=== PATIENT | female | born 1940 | race Caucasian/White ===

== ENCOUNTER 2022-05-14 13:32 | Emergency (ER) | payer MEDICAID ==
[~2022-05-14] VITALS: Ht 157.5 cm; Wt 56.7 kg
--- NOTE | 2022-05-14 13:45 | NUR ---
BIBRA 89 FROM HOME W/ C/O WEAKNESS AND DIZZINESS x 2DAYS B, JHOANA EQUAL STRENGTH, NO DRIFT. TO ER BED 9.
[2022-05-14 14:57] LABS: HEMATOCRIT 40 % (33-45); HEMOGLOBIN 13.3 g/dL (11.5-14.8); MEAN CORPUSCULAR HGB CONC 33 g/dl (31.0-36.0); MEAN CORPUSCULAR VOLUME 99 fL (82-100); PLATELET COUNT (AUTO) 305 K/uL (150-450); RED BLOOD CELL COUNT(AUTO) 4.01 MIL/uL (4.0-5.2); WHITE BLOOD COUNT (AUTO) 4.2 K/uL (4.3-11.0)
[2022-05-14 15:21] LABS: BILIRUBIN,DIRECT 0.2 mg/dL (0.0-0.2); BILIRUBIN,TOTAL 0.9 mg/dL (0.2-1.0); CALCIUM, SERUM 9.1 mg/dL (8.5-10.1); POTASSIUM 3.7 mmol/L (3.5-5.1); TOTAL PROTEIN, SERUM 7.6 g/dL (6.4-8.2)
[2022-05-14] MEDS ORDERED: ACETAMINOPHEN 325 MG TABLET ONE (15:59)
[2022-05-14] MEDS ORDERED: ACETAMINOPHEN 325 MG TABLET PO ONE (16:00)
[2022-05-14] MEDS ORDERED: IV NS 0.9% 1,000 ML IV ONE (16:00)
[2022-05-14] MEDS ORDERED: NAPR-1009 PO (16:31)
--- NOTE | 2022-05-14 17:00 | NUR ---
IV removed. Catheter intact and site benign. Pressure and 4x4 applied to site. No bleeding noted.Patient discharged to home with family in stable condition. Written and verbal after care instructions given. Patient verbalizes understanding of instruction.
[2022-05-14 17:15] VITALS: BP 147/71
[2022-05-15 03:56] LABS: BASOPHILS % (MANUAL) 0 % (0.0-2.0); EOSINOPHILS % (MANUAL) 3 % (0-4); LYMPHOCYTES % (MANUAL) 22 % (16-48); MONOCYTES % (MANUAL) 8 % (0-11.0); NEUTROPHILS % (MANUAL) 67 (42-76)
== END 2022-05-14 17:05 | disposition home or self-care (01) ==
LOC: ER 15:09
DX: R51.9 Headache, unspecified (principal); R55 Syncope and collapse; I10 Essential (primary) hypertension
CPT/HCPCS: 99285; 70450; 71045; 93005; 85025; 80048; 80076; 36415; 84484; 85007; J7030

== ENCOUNTER 2023-02-18 15:14 | Emergency (ER) | payer MEDICAID ==
[~2023-02-18] VITALS: Ht 167.6 cm; Wt 65.8 kg
[~2023-02-18 15:14] MED LIST: NAPR-1009 PO
[2023-02-18] MEDS ORDERED: PROCHLORPERAZINE EDISYLATE 10 MG/2 ML VIAL ONE (16:48)
[2023-02-18] MEDS ORDERED: IV NS 0.9% 1,000 ML BAG IV ONE (17:00)
[2023-02-18] MEDS ORDERED: PROCHLORPERAZINE EDISYLATE 10 MG/2 ML VIAL IVP ONE (17:00)
[2023-02-18 17:15] LABS: CALCIUM, SERUM 9.5 mg/dL (8.5-10.1); CARBON DIOXIDE 25 mmol/L (21-32); CHLORIDE 100 mmol/L (98-107); CREATININE 0.8 mg/dL (0.6-1.3); GLUCOSE 87 mg/dL (74-106); POTASSIUM 3.7 mmol/L (3.5-5.1); SODIUM SERUM 137 mmol/L (136-145); UREA NITROGEN, BLOOD 11 mg/dL (7-18)
[2023-02-18 17:24] LABS: BASOPHILS % (AUTO) 0.4 % (0.0-2.0); EOSINOPHILS # (AUTO) 0.2 K/uL (0.0-0.7); EOSINOPHILS % (AUTO) 3.4 % (0.0-6.0); HEMATOCRIT 39 % (33-45); LYMPHOCYTES # (AUTO) 0.8 K/uL (0.8-4.8); LYMPHOCYTES % (AUTO) 14.9 % (20.0-44.0); MEAN CORPUSCULAR HEMOGLOBIN 33 PG (26.0-33.0); MEAN CORPUSCULAR HGB CONC 34 g/dl (31.0-36.0); MEAN CORPUSCULAR VOLUME 99 fL (82-100); MONOCYTES # (AUTO) 0.4 K/uL (0.1-1.30); MONOCYTES % (AUTO) 7.8 % (2.0-12.0); NEUTROPHILS # (AUTO) 3.9 K/uL (1.8-8.9); NEUTROPHILS % (AUTO) 73.5 % (43.0-81.0); PLATELET COUNT (AUTO) 288 K/uL (150-450); RED BLOOD CELL COUNT(AUTO) 3.93 MIL/uL (4.0-5.2); RED CELL DISTRIBUTION WIDTH 13.2 % (11.5-15.0); WHITE BLOOD COUNT (AUTO) 5.3 K/uL (4.3-11.0)
[2023-02-18] MEDS ORDERED: ACETAMINOPHEN ES 500 MG TABLET ONE (17:55)
[2023-02-18] MEDS ORDERED: ACETAMINOPHEN ES 500 MG TABLET PO ONE (18:00)
[2023-02-18] MEDS ORDERED: ACET325T53 PO (18:58)
[2023-02-18 19:13] VITALS: BP 153/65; TEMP 98.4; O2SAT 98
== END 2023-02-18 19:13 | disposition home or self-care (01) ==
LOC: ER 15:18
DX: R51.9 Headache, unspecified (principal); I10 Essential (primary) hypertension
CPT/HCPCS: 99285; 96374; 70450; 96361; 85025; 80048; 36415; J0780; J7030

== ENCOUNTER 2023-04-26 13:10 | Emergency (ER) | payer MEDICAID ==
[~2023-04-26] VITALS: Ht 162.6 cm; Wt 84.4 kg
[~2023-04-26 13:10] MED LIST changes: +ACET325T53 PO
[2023-04-26 13:55] LABS: BASOPHILS % (AUTO) 0.4 % (0.0-2.0); EOSINOPHILS # (AUTO) 0.1 K/uL (0.0-0.7); EOSINOPHILS % (AUTO) 1.9 % (0.0-6.0); HEMATOCRIT 40 % (33-45); HEMOGLOBIN 13.7 g/dL (11.5-14.8); LYMPHOCYTES # (AUTO) 0.9 K/uL (0.8-4.8); LYMPHOCYTES % (AUTO) 11.5 % (20.0-44.0); MEAN CORPUSCULAR HEMOGLOBIN 33 PG (26.0-33.0); MEAN CORPUSCULAR HGB CONC 34 g/dl (31.0-36.0); MEAN CORPUSCULAR VOLUME 96 fL (82-100); MONOCYTES # (AUTO) 0.6 K/uL (0.1-1.30); MONOCYTES % (AUTO) 7.3 % (2.0-12.0); NEUTROPHILS % (AUTO) 78.9 % (43.0-81.0); PLATELET COUNT (AUTO) 322 K/uL (150-450); RED BLOOD CELL COUNT(AUTO) 4.16 MIL/uL (4.0-5.2); RED CELL DISTRIBUTION WIDTH 12.7 % (11.5-15.0); WHITE BLOOD COUNT (AUTO) 7.6 K/uL (4.3-11.0)
[2023-04-26 14:09] LABS: ALANINE AMINOTRANSFERASE 50 U/L (12-78); ALKALINE PHOSPHATASE 92 U/L (46-116); ASPARTATE AMINOTRANSFERASE 40 U/L (15-37); BILIRUBIN,DIRECT 0.2 mg/dL (0.0-0.2); BILIRUBIN,TOTAL 0.6 mg/dL (0.2-1.0); CALCIUM, SERUM 9.8 mg/dL (8.5-10.1); CARBON DIOXIDE 26 mmol/L (21-32); CHLORIDE 98 mmol/L (98-107); CREATININE 0.8 mg/dL (0.6-1.3); GLUCOSE 105 mg/dL (74-106); LIPASE 68 U/L (16-77); POTASSIUM 3.1 mmol/L (3.5-5.1); SODIUM SERUM 132 mmol/L (136-145); TOTAL PROTEIN, SERUM 7.8 g/dL (6.4-8.2); UREA NITROGEN, BLOOD 13 mg/dL (7-18)
[2023-04-26 14:40] LABS: APPEARANCE,URINE SLIGHTLY CLOUDY (CLEAR); BILIRUBIN,URINE 1+ (NEGATIVE); BLOOD, URINE 2+ Ery/uL (NEGATIVE); COLOR,URINE YELLOW (YELLOW); KETONES,URINE 2+ mg/dL (NEGATIVE); LEUKOCYTE ESTERASE ,URINE 2+ (NEGATIVE); NITRITE, URINE NEGATIVE (NEGATIVE); PH,URINE 6.5 (5.0-8.0); PROTEIN,URINE 1+ mg/dl (NEGATIVE); UGLUCOSE NEGATIVE (NEGATIVE)
[2023-04-26 14:59] LABS: ADD URINE CULTURE YES; BACTERIA,URINE 1+ /HPF (None Seen); SQUAMOUS EPITHELIAL CELL,UR Few /HPF (None Seen); UROBILINOGEN,URINE 0 EU/dL (0.2); WBC,URINE 81-100 /HPF (0-3)
[2023-04-26 15:00] LABS: CALCIUM OXALATE CRYSTALS,UR Moderate /HPF (None Seen)
[2023-04-26] MEDS ORDERED: CEFTRIAXONE 1GM BAG (ER ONLY) 50 ML IV ONE ×2 (15:07→15:30)
[2023-04-26] MEDS ORDERED: MORPHINE SULFATE INJ 2 MG/ML DISP.SYRIN IV ONE (15:30)
[2023-04-26] MEDS ORDERED: IV NS 0.9% 1,000 ML IV ONE (15:30)
[2023-04-26] MEDS ORDERED: IBUP-1953 PO (16:06)
[2023-04-26] MEDS ORDERED: NITR100C PO (16:06)
[2023-04-26] MEDS ORDERED: MORPHINE SULFATE INJ 2 MG/ML DISP.SYRIN ONE (16:34)
[2023-04-26 16:38] VITALS: BP 142/68; TEMP 98; O2SAT 97
== END 2023-04-26 16:38 | disposition home or self-care (01) ==
LOC: ER 13:10
DX: N39.0 Urinary tract infection, site not specified (principal); R51.9 Headache, unspecified; I10 Essential (primary) hypertension; F32.A Depression, unspecified; Z79.899 Other long term (current) drug therapy
CPT/HCPCS: 99285; 70450; 96365; 74176; 85025; 80048; 87040 ×2; 87086; 83605; 83690; 80076; 81001; 36415; J7030; A4223; J0696; J2270

== ENCOUNTER 2023-12-19 11:53 | Emergency (ER) | payer MEDICAID ==
[~2023-12-19] VITALS: Ht 167.6 cm; Wt 70.3 kg
[~2023-12-19 11:53] MED LIST changes: +IBUP-1953 PO; +NITR100C PO
[2023-12-19 12:33] LABS: BASOPHILS % (AUTO) 0.3 % (0.0-2.0); EOSINOPHILS # (AUTO) 0.1 K/uL (0.0-0.7); EOSINOPHILS % (AUTO) 1.7 % (0.0-6.0); HEMATOCRIT 33 % (33-45); HEMOGLOBIN 11.4 g/dL (11.5-14.8); LYMPHOCYTES # (AUTO) 0.6 K/uL (0.8-4.8); LYMPHOCYTES % (AUTO) 12.1 % (20.0-44.0); MEAN CORPUSCULAR HEMOGLOBIN 33 PG (26.0-33.0); MEAN CORPUSCULAR HGB CONC 35 g/dl (31.0-36.0); MEAN CORPUSCULAR VOLUME 94 fL (82-100); MONOCYTES # (AUTO) 0.5 K/uL (0.1-1.30); MONOCYTES % (AUTO) 8.6 % (2.0-12.0); NEUTROPHILS # (AUTO) 4.1 K/uL (1.8-8.9); NEUTROPHILS % (AUTO) 77.3 % (43.0-81.0); PLATELET COUNT (AUTO) 318 K/uL (150-450); RED CELL DISTRIBUTION WIDTH 12.9 % (11.5-15.0); WHITE BLOOD COUNT (AUTO) 5.4 K/uL (4.3-11.0)
[2023-12-19 12:45] LABS: APPEARANCE,URINE CLEAR (CLEAR); BILIRUBIN,URINE NEGATIVE (NEGATIVE); BLOOD, URINE NEGATIVE Ery/uL (NEGATIVE); COLOR,URINE YELLOW (YELLOW); KETONES,URINE NEGATIVE (NEGATIVE); LEUKOCYTE ESTERASE ,URINE NEGATIVE (NEGATIVE); NITRITE, URINE NEGATIVE (NEGATIVE); PH,URINE 6.5 (5.0-8.0); PROTEIN,URINE NEGATIVE (NEGATIVE); UGLUCOSE NEGATIVE (NEGATIVE); UROBILINOGEN,URINE 0.2 EU/dL (0.2)
[2023-12-19 12:45] LABS: CALCIUM, SERUM 9.5 mg/dL (8.5-10.1); CARBON DIOXIDE 30 mmol/L (21-32); CHLORIDE 93 mmol/L (98-107); CREATININE 0.9 mg/dL (0.6-1.3); GLUCOSE 100 mg/dL (74-106); POTASSIUM 3.4 mmol/L (3.5-5.1); SODIUM SERUM 130 mmol/L (136-145); UREA NITROGEN, BLOOD 10 mg/dL (7-18)
[2023-12-19 12:51] LABS: ALANINE AMINOTRANSFERASE 27 U/L (12-78); ALBUMIN 3.6 g/dL (3.4-5.0); ALKALINE PHOSPHATASE 49 U/L (46-116); ASPARTATE AMINOTRANSFERASE 27 U/L (15-37); BILIRUBIN,DIRECT 0.3 mg/dL (0.0-0.2); BILIRUBIN,TOTAL 0.9 mg/dL (0.2-1.0); TOTAL PROTEIN, SERUM 7.3 g/dL (6.4-8.2)
[2023-12-19] MEDS ORDERED: ACETAMINOPHEN 325 MG TABLET ONE (20:31)
[2023-12-19] MEDS: ACETAMINOPHEN 325 MG TABLET PO ONE (20:35)
[2023-12-19 21:21] VITALS: BP 121/53; TEMP 98.7; O2SAT 96
== END 2023-12-19 20:55 | disposition home or self-care (01) ==
LOC: ER 11:55
DX: S09.8XXA Other specified injuries of head, initial encounter (principal); S00.511A Abrasion of lip, initial encounter; R53.1 Weakness; R62.7 Adult failure to thrive; I10 Essential (primary) hypertension; F32.A Depression, unspecified; F03.90 Unspecified dementia, unspecified severity, without behavioral disturbance, psychotic disturbance, mood disturbance, and anxiety; R29.6 Repeated falls; Z20.822 Contact with and (suspected) exposure to COVID-19; W18.39XA Other fall on same level, initial encounter; Y93.89 Activity, other specified; Y92.098 Other place in other non-institutional residence as the place of occurrence of the external cause; Y99.8 Other external cause status
CPT/HCPCS: 36415; 70450-TC; 70486-TC; 71045-TC; 72125-TC; 80048-TC; 80076-TC; 82962-TC; 84443-TC; 84484-TC; 85025-TC; 86850-TC

== ENCOUNTER 2024-03-06 14:59 | Emergency (ER) | payer MEDICAID, OTHER ==
[~2024-03-06] VITALS: Ht 172.7 cm; Wt 62.6 kg
[2024-03-06] MEDS: IV NS 0.9% 1,000 ML BAG IV ONE ×2 (15:36→17:07)
[2024-03-06 15:51] LABS: BASOPHILS % (AUTO) 0.6 % (0.0-2.0); EOSINOPHILS # (AUTO) 0.1 K/uL (0.0-0.7); EOSINOPHILS % (AUTO) 2.6 % (0.0-6.0); HEMATOCRIT 33 % (33-45); HEMOGLOBIN 11.5 g/dL (11.5-14.8); LYMPHOCYTES # (AUTO) 1.2 K/uL (0.8-4.8); LYMPHOCYTES % (AUTO) 24.5 % (20.0-44.0); MEAN CORPUSCULAR HEMOGLOBIN 33 PG (26.0-33.0); MEAN CORPUSCULAR HGB CONC 36 g/dl (31.0-36.0); MEAN CORPUSCULAR VOLUME 93 fL (82-100); MONOCYTES # (AUTO) 0.6 K/uL (0.1-1.30); MONOCYTES % (AUTO) 13.5 % (2.0-12.0); NEUTROPHILS # (AUTO) 2.8 K/uL (1.8-8.9); NEUTROPHILS % (AUTO) 58.8 % (43.0-81.0); PLATELET COUNT (AUTO) 353 K/uL (150-450); RED BLOOD CELL COUNT(AUTO) 3.48 MIL/uL (4.0-5.2); RED CELL DISTRIBUTION WIDTH 13.3 % (11.5-15.0); WHITE BLOOD COUNT (AUTO) 4.8 K/uL (4.3-11.0)
[2024-03-06 16:04] LABS: CALCIUM, SERUM 9.4 mg/dL (8.5-10.1); CARBON DIOXIDE 26 mmol/L (21-32); CHLORIDE 89 mmol/L (98-107); CREATININE 1.6 mg/dL (0.6-1.3); GLUCOSE 105 mg/dL (74-106); SODIUM SERUM 125 mmol/L (136-145); UREA NITROGEN, BLOOD 48 mg/dL (7-18)
[2024-03-06 16:15] LABS: POTASSIUM 2.5 mmol/L (3.5-5.1)
[2024-03-06] MEDS ORDERED: POTASSIUM CL. PREMIX PERIPHER. 50 ML ONE (16:58)
[2024-03-06] MEDS: Magnesium 1GM/D5W 100ML PREMIX PIGGYBACK IV ONE (17:08)
[2024-03-06] MEDS: POTASSIUM CL. PREMIX PERIPHER. 50 ML IV SCH (17:08)
[2024-03-06 17:15] VITALS: TEMP 98
[2024-03-06 18:14] VITALS: BP 119/49; O2SAT 98
== END 2024-03-06 22:27 | disposition short-term general hospital (02) ==
LOC: ER 15:05
DX: R62.7 Adult failure to thrive (principal); E87.1 Hypo-osmolality and hyponatremia; E87.6 Hypokalemia; N28.9 Disorder of kidney and ureter, unspecified; F03.90 Unspecified dementia, unspecified severity, without behavioral disturbance, psychotic disturbance, mood disturbance, and anxiety; I10 Essential (primary) hypertension; F32.A Depression, unspecified; Z20.822 Contact with and (suspected) exposure to COVID-19; Z79.899 Other long term (current) drug therapy
CPT/HCPCS: 99285; 96365; 70450; 96366; 71045; 96361; 87426; 96368; 93005; 85025; 80048; 36415; 84484 ×2; J7030 ×2; J3480 ×2; J3475; A4223

== ENCOUNTER 2024-08-01 11:37 | Emergency (ER) | payer MEDICAID, OTHER ==
[~2024-08-01] VITALS: Ht 154.9 cm; Wt 59.9 kg
[2024-08-01] MEDS ORDERED: ACETAMINOPHEN ES 500 MG TABLET ONE (12:15)
[2024-08-01 12:26] LABS: BASOPHILS % (AUTO) 0.9 % (0.0-2.0); EOSINOPHILS # (AUTO) 0.1 K/uL (0.0-0.7); EOSINOPHILS % (AUTO) 2.4 % (0.0-6.0); HEMATOCRIT 34 % (33-45); HEMOGLOBIN 11.8 g/dL (11.5-14.8); LYMPHOCYTES # (AUTO) 0.7 K/uL (0.8-4.8); LYMPHOCYTES % (AUTO) 13.9 % (20.0-44.0); MEAN CORPUSCULAR HEMOGLOBIN 32 PG (26.0-33.0); MEAN CORPUSCULAR HGB CONC 35 g/dl (31.0-36.0); MEAN CORPUSCULAR VOLUME 94 fL (82-100); MONOCYTES # (AUTO) 0.4 K/uL (0.1-1.30); MONOCYTES % (AUTO) 8.4 % (2.0-12.0); NEUTROPHILS # (AUTO) 3.6 K/uL (1.8-8.9); NEUTROPHILS % (AUTO) 74.4 % (43.0-81.0); PLATELET COUNT (AUTO) 324 K/uL (150-450); RED BLOOD CELL COUNT(AUTO) 3.65 MIL/uL (4.0-5.2); RED CELL DISTRIBUTION WIDTH 12.8 % (11.5-15.0); WHITE BLOOD COUNT (AUTO) 4.8 K/uL (4.3-11.0)
[2024-08-01 12:34] LABS: ALBUMIN 3.6 g/dL (3.4-5.0); BILIRUBIN,DIRECT 0.1 mg/dL (0.0-0.2); BILIRUBIN,TOTAL 0.4 mg/dL (0.2-1.0); CALCIUM, SERUM 9.9 mg/dL (8.5-10.1); CREATININE 0.7 mg/dL (0.6-1.3)
[2024-08-01 12:37] LABS: PARTIAL THROMBOPLASTIN TIME 27.2 SEC (24.3-34.3); PROTHROMBIN TIME 10.6 SECS (9.2-11.1)
[2024-08-01 12:40] LABS: ERYTHROCYTE SEDIMENTATION RATE 12 MM/HR (0-30)
[2024-08-01] MEDS: IV NS 0.9% 1,000 ML BAG IV ONE (12:49)
[2024-08-01] MEDS: ACETAMINOPHEN ES 500 MG TABLET PO ONE (12:50)
[2024-08-01 13:07] LABS: APPEARANCE,URINE CLEAR (CLEAR); BILIRUBIN,URINE NEGATIVE (NEGATIVE); BLOOD, URINE NEGATIVE Ery/uL (NEGATIVE); COLOR,URINE YELLOW (YELLOW); KETONES,URINE NEGATIVE (NEGATIVE); LEUKOCYTE ESTERASE ,URINE NEGATIVE (NEGATIVE); NITRITE, URINE NEGATIVE (NEGATIVE); PROTEIN,URINE NEGATIVE (NEGATIVE); UGLUCOSE NEGATIVE (NEGATIVE); UROBILINOGEN,URINE 0.2 EU/dL (0.2)
[2024-08-01] MEDS ORDERED: IOHEXOL-350 100 ML VIAL IV ONE (13:17)
[2024-08-01] MEDS ORDERED: CT SWABBABLE VALVE TRANS SET 1 EA INFUS.SET MC ONE (13:18)
[2024-08-01] MEDS ORDERED: IV NS 0.9% 250 ML IV ONE (13:18)
[2024-08-01] MEDS ORDERED: LIDO30AD10 TP (14:41)
[2024-08-01 15:34] VITALS: BP 137/63; TEMP 98.1; O2SAT 99
== END 2024-08-01 16:18 | disposition home or self-care (01) ==
LOC: ER 12:03
DX: R51.9 Headache, unspecified (principal); M54.2 Cervicalgia; R91.1 Solitary pulmonary nodule; F03.90 Unspecified dementia, unspecified severity, without behavioral disturbance, psychotic disturbance, mood disturbance, and anxiety; I10 Essential (primary) hypertension; I65.22 Occlusion and stenosis of left carotid artery; F32.A Depression, unspecified
CPT/HCPCS: 99285; 70498; 96360; 71045; 93005; 70496; 85025; 80048; 80076; 85652; 81003; 36415; 85730; 82962; 70450; J7050; Q9967

== ENCOUNTER 2024-11-12 09:13 | Emergency (ER) | payer MEDICAID, OTHER ==
[~2024-11-12] VITALS: Ht 160 cm; Wt 56.2 kg
[~2024-11-12 09:13] MED LIST changes: +LIDO30AD10 TP
[2024-11-12 09:16] VITALS: TEMP 98.1
[2024-11-12 09:46] LABS: BASOPHILS % (AUTO) 0.5 % (0.0-2.0); EOSINOPHILS # (AUTO) 0.1 K/uL (0.0-0.7); EOSINOPHILS % (AUTO) 2.1 % (0.0-6.0); HEMATOCRIT 33 % (33-45); LYMPHOCYTES # (AUTO) 0.5 K/uL (0.8-4.8); MEAN CORPUSCULAR HEMOGLOBIN 32 PG (26.0-33.0); MEAN CORPUSCULAR HGB CONC 34 g/dl (31.0-36.0); MEAN CORPUSCULAR VOLUME 93 fL (82-100); MONOCYTES # (AUTO) 0.3 K/uL (0.1-1.30); MONOCYTES % (AUTO) 10.8 % (2.0-12.0); NEUTROPHILS # (AUTO) 2.2 K/uL (1.8-8.9); NEUTROPHILS % (AUTO) 69.6 % (43.0-81.0); PLATELET COUNT (AUTO) 328 K/uL (150-450); RED BLOOD CELL COUNT(AUTO) 3.49 MIL/uL (4.0-5.2); RED CELL DISTRIBUTION WIDTH 13.1 % (11.5-15.0); WHITE BLOOD COUNT (AUTO) 3.2 K/uL (4.3-11.0)
[2024-11-12 09:52] LABS: ALCOHOL, BLOOD < 3 mg/dL (0-10)
[2024-11-12 09:55] LABS: APPEARANCE,URINE CLEAR (CLEAR); BILIRUBIN,URINE Negative (NEGATIVE); BLOOD, URINE Trace-intact Ery/uL (NEGATIVE); COLOR,URINE YELLOW (YELLOW); KETONES,URINE Negative (NEGATIVE); LEUKOCYTE ESTERASE ,URINE Moderate (NEGATIVE); PH,URINE 6.5 (5.0-8.0); PROTEIN,URINE Negative (NEGATIVE); UGLUCOSE Negative (NEGATIVE)
[2024-11-12 09:55] LABS: CALCIUM, SERUM 9.2 mg/dL (8.5-10.1); CARBON DIOXIDE 25 mmol/L (21-32); CHLORIDE 98 mmol/L (98-107); CREATININE 0.8 mg/dL (0.6-1.3); GLUCOSE 111 mg/dL (74-106); POTASSIUM 3.5 mmol/L (3.5-5.1); SODIUM SERUM 134 mmol/L (136-145); UREA NITROGEN, BLOOD 19 mg/dL (7-18)
[2024-11-12 09:57] LABS: NITRITE, URINE NEGATIVE (NEGATIVE)
[2024-11-12 09:57] LABS: ALANINE AMINOTRANSFERASE 16 U/L (12-78); ALBUMIN 3.5 g/dL (3.4-5.0); ALKALINE PHOSPHATASE 49 U/L (46-116); ASPARTATE AMINOTRANSFERASE 24 U/L (15-37); BILIRUBIN,DIRECT 0.1 mg/dL (0.0-0.2); BILIRUBIN,TOTAL 0.5 mg/dL (0.2-1.0); TOTAL PROTEIN, SERUM 6.8 g/dL (6.4-8.2)
[2024-11-12 10:07] LABS: ADD URINE CULTURE YES; BACTERIA,URINE Moderate /HPF (None Seen); WBC,URINE TOO NUMEROUS TO COUN /HPF (0-3)
[2024-11-12 10:08] LABS: SQUAMOUS EPITHELIAL CELL,UR Few /HPF (None Seen)
[2024-11-12 10:14] LABS: AMPHETAMINE, URINE NEGATIVE (NEGATIVE); BARBITURATE, URINE NEGATIVE (NEGATIVE); CANNABINOID, URINE NEGATIVE (NEGATIVE); COCCAINE, URINE NEGATIVE (NEGATIVE); PHENCYCLIDINE SCREEN,URINE NEGATIVE (NEGATIVE)
[2024-11-12 10:15] LABS: BENZODIAZEPINE, URINE POSITIVE (NEGATIVE); OPIATE, URINE POSITIVE (NEGATIVE)
[2024-11-12] MEDS ORDERED: ACET1TAB23 PO (11:37)
[2024-11-12] MEDS ORDERED: SERT100T12 PO (11:37)
[2024-11-12] MEDS ORDERED: LOSA1TAB39 PO (11:37)
[2024-11-12] MEDS ORDERED: TRAZ-257 PO (11:37)
[2024-11-12] MEDS ORDERED: AMLO-213 PO (11:37)
[2024-11-12] MEDS ORDERED: DOXE25CA3 PO (11:37)
[2024-11-12] MEDS ORDERED: PROP20TA19 PO (11:37)
[2024-11-12] MEDS ORDERED: DICY10CA37 PO (11:37)
[2024-11-12] MEDS ORDERED: QULIPTA PO (11:37)
[2024-11-12] MEDS ORDERED: LORA2TAB95 PO (11:37)
[2024-11-12] MEDS ORDERED: MECL-173 PO (11:37)
[2024-11-12] MEDS ORDERED: KETOROLAC TROMETHAMINE 15 MG/ML VIAL ONE (13:46)
[2024-11-12] MEDS ORDERED: ACETAMINOPHEN 325 MG TABLET ONE (13:47)
[2024-11-12] MEDS: IV NS 0.9% 1,000 ML BAG IV ONE (13:58)
[2024-11-12] MEDS: ACETAMINOPHEN 325 MG TABLET PO ONE (13:59)
[2024-11-12] MEDS: KETOROLAC TROMETHAMINE 15 MG/ML VIAL IV ONE (14:00)
[2024-11-12] MEDS ORDERED: CEPH-570 PO (14:00)
[2024-11-12] MEDS: CEFTRIAXONE 1 G in IV D5W 50 ML IV ONE (14:00)
[2024-11-12 17:00] VITALS: BP 160/53; O2SAT 99
== END 2024-11-12 17:39 ==
LOC: ER 09:16
DX: N39.0 Urinary tract infection, site not specified (principal); R62.7 Adult failure to thrive; F03.90 Unspecified dementia, unspecified severity, without behavioral disturbance, psychotic disturbance, mood disturbance, and anxiety; R07.9 Chest pain, unspecified; G89.29 Other chronic pain; R42 Dizziness and giddiness; R51.9 Headache, unspecified; F32.A Depression, unspecified; I10 Essential (primary) hypertension; Z79.899 Other long term (current) drug therapy; Z20.822 Contact with and (suspected) exposure to COVID-19
CPT/HCPCS: 99285; 96365; 96375; 93005; 71045; 70450; 85025; 80048; 87086; 80076; 81001; 36415; 84443; 84484; 82962; 87426; 80320; 80307; J0696; J7060; J7040; A4223; J1885; 87186-TC; G0480

== ENCOUNTER 2024-12-21 13:03 | Emergency (ER) | payer MEDICAID ==
[~2024-12-21] VITALS: Ht 160 cm; Wt 61.7 kg
[~2024-12-21 13:03] MED LIST changes: +ACET1TAB23 PO; -ACET325T53 PO; +AMLO-213 PO; +CEPH-570 PO; +DICY10CA37 PO; +DOXE25CA3 PO; -IBUP-1953 PO; -LIDO30AD10 TP; +LORA2TAB95 PO; +LOSA1TAB39 PO; +MECL-173 PO; -NAPR-1009 PO; -NITR100C PO; +PROP20TA19 PO; +QULIPTA PO; +SERT100T12 PO; +TRAZ-257 PO
[2024-12-21 14:16] LABS: PLATELET COUNT (AUTO) 429 K/uL (150-450); RED BLOOD CELL COUNT(AUTO) 4.04 MIL/uL (4.0-5.2); RED CELL DISTRIBUTION WIDTH 13.3 % (11.5-15.0); WHITE BLOOD COUNT (AUTO) 3.7 K/uL (4.3-11.0)
[2024-12-21 14:23] LABS: CALCIUM, SERUM 9.6 mg/dL (8.5-10.1); CREATININE 0.7 mg/dL (0.6-1.3); SODIUM SERUM 122 mmol/L (136-145); UREA NITROGEN, BLOOD 22 mg/dL (7-18)
[2024-12-21 14:36] LABS: ASPARTATE AMINOTRANSFERASE 19 U/L (15-37); NT-PRO BNP 182 pg/mL (0-125); TOTAL PROTEIN, SERUM 8.0 g/dL (6.4-8.2)
[2024-12-21 14:37] LABS: APPEARANCE,URINE CLEAR (CLEAR); BLOOD, URINE TRACE-INTA Ery/uL (NEGATIVE); LEUKOCYTE ESTERASE ,URINE NEGATIVE (NEGATIVE); NITRITE, URINE NEGATIVE (NEGATIVE); UGLUCOSE NEGATIVE (NEGATIVE)
[2024-12-21 14:58] LABS: ADD URINE CULTURE NO; SQUAMOUS EPITHELIAL CELL,UR 0-2 /HPF (None Seen)
[2024-12-21] MEDS: PIPERACILLIN /TAZOBACTAM 3.375 G in IV D5W 50 ML IV ONE (16:13)
[2024-12-21] MEDS ORDERED: DOCU100T2 PO (17:07)
[2024-12-21] MEDS ORDERED: PANT20TA17 PO (17:07)
[2024-12-21] MEDS ORDERED: AMIT10TA6 PO (17:07)
[2024-12-21] MEDS ORDERED: MORPHINE SULFATE INJ 2 MG/ML DISP.SYRIN ONE ×2 (18:03→21:05)
[2024-12-21] MEDS: MORPHINE SULFATE INJ 2 MG/ML DISP.SYRIN IV ONE ×2 (18:11→21:13)
[2024-12-21 18:12] VITALS: TEMP 98.5
[2024-12-21 20:44] VITALS: BP 114/82; O2SAT 97
== END 2024-12-22 00:19 | disposition short-term general hospital (02) ==
LOC: ER 13:03
DX: E87.1 Hypo-osmolality and hyponatremia (principal); E87.6 Hypokalemia; R60.0 Localized edema; M79.604 Pain in right leg; M79.605 Pain in left leg; E86.0 Dehydration; F03.93 Unspecified dementia, unspecified severity, with mood disturbance; F32.A Depression, unspecified; I10 Essential (primary) hypertension; K52.9 Noninfective gastroenteritis and colitis, unspecified; Z79.899 Other long term (current) drug therapy
CPT/HCPCS: 99285; 74176; 93970; 96365; 71045; 96375; 93005; 96376; 85025; 80048; 87086; 83690; 80076; 81001; 36415; 84484; 83880; J2543; J7060; J2270 ×2

== ENCOUNTER 2025-02-14 15:32 | Inpatient (IN) | payer OTHER, MEDICARE ==
[~2025-02-14] VITALS: Ht 154.9 cm; Wt 62.6 kg
[~2025-02-14 15:32] MED LIST changes: +AMIT10TA6 PO; -CEPH-570 PO; -DICY10CA37 PO; +DOCU100T2 PO; +PANT20TA17 PO
[2025-02-14 16:37] LABS: PLATELET COUNT (AUTO) 332 K/uL (150-450); RED BLOOD CELL COUNT(AUTO) 2.95 MIL/uL (4.0-5.2); RED CELL DISTRIBUTION WIDTH 13.7 % (11.5-15.0); WHITE BLOOD COUNT (AUTO) 4.0 K/uL (4.3-11.0)
[2025-02-14 16:51] LABS: CALCIUM, SERUM 9.3 mg/dL (8.5-10.1); CREATININE 1.1 mg/dL (0.6-1.3); INR 0.98 (0.91-1.10); SODIUM SERUM 134.0 mmol/L (136-145); UREA NITROGEN, BLOOD 31.0 mg/dL (7-18)
[2025-02-14] MEDS: IV NS 0.9% 1,000 ML BAG IV ONE (16:51)
[2025-02-14 16:58] LABS: ASPARTATE AMINOTRANSFERASE 20.0 U/L (15-37)
[2025-02-14 16:59] LABS: TOTAL PROTEIN, SERUM 6.5 g/dL (6.4-8.2)
[2025-02-14 17:06] LABS: EOSINOPHILS % (MANUAL) 3 % (0-4); LYMPHOCYTES % (MANUAL) 16 % (16-48); MONOCYTES % (MANUAL) 17 % (0-11.0); NEUTROPHILS % (MANUAL) 64 (42-76)
[2025-02-14 17:07] LABS: PLATELET ESTIMATE ADEQUATE
[2025-02-14] MEDS ORDERED: POTASSIUM CL. PREMIX PERIPHER. 100 ML ONE (17:10)
[2025-02-14] MEDS ORDERED: POTASSIUM CHLORIDE 20 MEQ TAB.PRT.SR PO ONE (17:11)
[2025-02-14] MEDS ORDERED: Magnesium 1GM/D5W 100ML PREMIX 100 ML IV ONE (17:11)
[2025-02-14] MEDS ORDERED: CT SWABBABLE VALVE TRANS SET 1 EA INFUS.SET MC ONE (17:18)
[2025-02-14] MEDS ORDERED: IOHEXOL-300 100 ML VIAL IV ONE ×2 (17:18→20:07)
[2025-02-14] MEDS ORDERED: IV NS 0.9% 250 ML IV ONE (17:18)
[2025-02-14] MEDS: POTASSIUM CHLORIDE 20 MEQ TAB.PRT.SR PO ONE (18:15)
[2025-02-14] MEDS: POTASSIUM CL. PREMIX PERIPHER. 50 ML IV SCH (18:15)
[2025-02-14] MEDS: Magnesium 1GM/D5W 100ML PREMIX 100 ML IV SCH (19:00)
[2025-02-14] MEDS ORDERED: ACETAMINOPHEN 325 MG TABLET ONE (19:39)
[2025-02-14] MEDS: ACETAMINOPHEN 325 MG TABLET PO PRN (19:46)
[2025-02-14] MEDS ORDERED: POTASSIUM CL. PREMIX PERIPHER. 50 ML ONE ×2 (20:33→21:28)
[2025-02-14] MEDS ORDERED: ONDANSETRON HCL/PF 4 MG/2 ML VIAL IVP PRN (22:00)
[2025-02-14] MEDS ORDERED: MAG HYDROX/AL HYDROX/SIMETH 30 ML UDC PO PRN (22:00)
[2025-02-14] MEDS ORDERED: MAGNESIUM HYDROXIDE 30 ML UDC PO PRN (22:00)
[2025-02-14] MEDS ORDERED: Z GUARD REMEDY 4 OZ OINT TP PRN (22:00)
[2025-02-15] VITALS (8 sets, daily range): BP systolic 118–178; BP diastolic 56–76; TEMP 97.1–98.5; O2SAT 95–100
[2025-02-15] MEDS: LORAZEPAM INJ 2 MG/ML VIAL IV ONE (01:13)
[2025-02-15] MEDS: IV NS 0.9% 1,000 ML IV PRN (01:25)
[2025-02-15 06:21] LABS: PLATELET COUNT (AUTO) 338 K/uL (150-450); RED BLOOD CELL COUNT(AUTO) 3.11 MIL/uL (4.0-5.2); RED CELL DISTRIBUTION WIDTH 13.9 % (11.5-15.0); WHITE BLOOD COUNT (AUTO) 4.2 K/uL (4.3-11.0)
[2025-02-15 06:34] LABS: CALCIUM, SERUM 9.4 mg/dL (8.5-10.1); CREATININE 0.5 mg/dL (0.6-1.3); PHOSPHORUS 2.5 mg/dL (2.5-4.9); SODIUM SERUM 137.0 mmol/L (136-145); UREA NITROGEN, BLOOD 16.0 mg/dL (7-18)
[2025-02-15 06:44] LABS: IRON, SERUM 22.0 ug/dl (50-175)
[2025-02-15] MEDS: PANTOPRAZOLE 40 MG TABLET.DR PO SCH (08:31)
[2025-02-15] MEDS: BUPROPION XL 150 MG TAB.ER.24 PO SCH (08:31)
[2025-02-15] MEDS: ACETAMINOPHEN 325 MG TABLET PO PRN (08:31)
[2025-02-15] MEDS: AMLODIPINE BESYLATE 10 MG TABLET PO SCH (08:31)
[2025-02-15] MEDS: SERTRALINE HCL 50 MG TABLET PO SCH (08:32)
[2025-02-15] MEDS: POTASSIUM CHLORIDE 20 MEQ TAB.PRT.SR PO SCH (09:48)
[2025-02-15] MEDS: MORPHINE SULFATE INJ 2 MG/ML DISP.SYRIN IV PRN (11:28)
[2025-02-15] MEDS: TRAZODONE 50 MG TABLET PO SCH (21:34)
[2025-02-16] VITALS: BP 126/99; TEMP 98.8; O2SAT 96
[2025-02-16 04:00] VITALS: BP 146/58; TEMP 98.8; O2SAT 96
[2025-02-16 08:00] VITALS: BP 160/68; TEMP 98.1; O2SAT 97
[2025-02-16] MEDS: POTASSIUM CHLORIDE 20 MEQ TAB.PRT.SR PO ONE (09:55)
[2025-02-16 15:28] LABS: PLATELET COUNT (AUTO) 391 K/uL (150-450); RED BLOOD CELL COUNT(AUTO) 3.11 MIL/uL (4.0-5.2); RED CELL DISTRIBUTION WIDTH 13.9 % (11.5-15.0); WHITE BLOOD COUNT (AUTO) 5.3 K/uL (4.3-11.0)
[2025-02-16 15:33] LABS: CALCIUM, SERUM 8.8 mg/dL (8.5-10.1); CREATININE 0.7 mg/dL (0.6-1.3); SODIUM SERUM 136.0 mmol/L (136-145); UREA NITROGEN, BLOOD 7.0 mg/dL (7-18)
[2025-02-16 16:00] VITALS: BP 101/83; TEMP 97.6; O2SAT 99
[2025-02-16] MEDS: LORAZEPAM 1 MG TABLET PO PRN (19:58)
[2025-02-16 20:00] VITALS: BP 133/54; TEMP 98; O2SAT 98
[2025-02-17] VITALS: BP 133/54; TEMP 98; O2SAT 98
[2025-02-17 04:00] VITALS: BP 120/84; TEMP 98.8; O2SAT 96
[2025-02-17 07:31] LABS: CALCIUM, SERUM 9.5 mg/dL (8.5-10.1); CREATININE 0.5 mg/dL (0.6-1.3); SODIUM SERUM 139.0 mmol/L (136-145); UREA NITROGEN, BLOOD 6.0 mg/dL (7-18)
[2025-02-17 07:37] LABS: PLATELET COUNT (AUTO) 401 K/uL (150-450); RED BLOOD CELL COUNT(AUTO) 3.26 MIL/uL (4.0-5.2); RED CELL DISTRIBUTION WIDTH 13.9 % (11.5-15.0); WHITE BLOOD COUNT (AUTO) 2.8 K/uL (4.3-11.0)
[2025-02-17 08:00] VITALS: BP 155/64; TEMP 98.2; O2SAT 98
[2025-02-17 12:00] VITALS: BP 148/68; TEMP 98.2
[2025-02-17] MEDS: SOD FERRIC GLUC 125 MG in IV NS 0.9% 100 ML IV SCH (14:57)
[2025-02-17 16:00] VITALS: BP 137/61; TEMP 98.2; O2SAT 95
[2025-02-17 20:00] VITALS: BP 140/121; TEMP 98.4; O2SAT 96
[2025-02-17] MEDS: TRAZODONE 50 MG TABLET PO SCH (22:00)
[2025-02-18] VITALS: BP 140/121; TEMP 98.4; O2SAT 96
[2025-02-18 04:00] VITALS: BP 161/84; TEMP 98.2; O2SAT 99
[2025-02-18 08:00] VITALS: BP 158/71; TEMP 98.1; O2SAT 99
[2025-02-18 12:00] VITALS: BP 158/71; TEMP 98.1; O2SAT 99
[2025-02-18 15:27] LABS: PLATELET COUNT (AUTO) 428 K/uL (150-450); RED BLOOD CELL COUNT(AUTO) 3.33 MIL/uL (4.0-5.2); RED CELL DISTRIBUTION WIDTH 14.0 % (11.5-15.0); WHITE BLOOD COUNT (AUTO) 6.1 K/uL (4.3-11.0)
[2025-02-18 15:36] LABS: CALCIUM, SERUM 9.3 mg/dL (8.5-10.1); CREATININE 0.6 mg/dL (0.6-1.3); SODIUM SERUM 134.0 mmol/L (136-145); UREA NITROGEN, BLOOD 8.0 mg/dL (7-18)
[2025-02-18 16:00] VITALS: BP 149/68; TEMP 98.2; O2SAT 97
[2025-02-18] MEDS ORDERED: MECLIZINE HCL 25 MG TABLET PO PRN (17:00)
[2025-02-18] MEDS: PROPRANOLOL HCL 10 MG TABLET PO SCH (18:19)
[2025-02-18] MEDS ORDERED: MECLIZINE HCL 12.5 MG TABLET PO PRN (18:30)
[2025-02-18 20:00] VITALS: BP 145/101; TEMP 98; O2SAT 98
[2025-02-18] MEDS: DOXEPIN HCL (25 MG) 25 MG CAPSULE PO SCH (21:36)
[2025-02-19 06:00] VITALS: BP 148/98; TEMP 98.3; O2SAT 98
[2025-02-19 06:26] LABS: PLATELET COUNT (AUTO) 501 K/uL (150-450); RED BLOOD CELL COUNT(AUTO) 3.51 MIL/uL (4.0-5.2); RED CELL DISTRIBUTION WIDTH 14.2 % (11.5-15.0); WHITE BLOOD COUNT (AUTO) 2.9 K/uL (4.3-11.0)
[2025-02-19 06:49] LABS: CALCIUM, SERUM 9.3 mg/dL (8.5-10.1); CREATININE 0.5 mg/dL (0.6-1.3); SODIUM SERUM 139.0 mmol/L (136-145); UREA NITROGEN, BLOOD 8.0 mg/dL (7-18)
[2025-02-19 08:00] VITALS: BP 147/65; TEMP 98.4; O2SAT 96
[2025-02-19] MEDS ORDERED: Medication Not On Formulary EA (Sertraline Hcl 100 MG) PO SCH (09:00)
[2025-02-19] MEDS ORDERED: AMLODIPINE BESYLATE 10 MG TABLET PO SCH (09:00)
[2025-02-19] MEDS: LOSARTAN POTASSIUM 50 MG TABLET PO SCH (09:07)
[2025-02-19] MEDS: HYDROCHLOROTHIAZIDE 25 MG TABLET PO SCH (09:08)
[2025-02-19] MEDS: AMITRIPTYLINE HCL 10 MG TABLET PO SCH (09:08)
[2025-02-19] MEDS: DOCUSATE SODIUM 100 MG CAPSULE PO SCH (09:08)
[2025-02-19 10:00] VITALS: BP 147/65; TEMP 98.4; O2SAT 96
[2025-02-19 13:00] VITALS: BP 147/65; TEMP 98.4; O2SAT 96
[2025-02-19 16:00] VITALS: BP 161/69; TEMP 97.9; O2SAT 98
[2025-02-19 21:00] VITALS: BP 148/66; TEMP 98.2; O2SAT 97
[2025-02-20 05:00] VITALS: BP 160/63; TEMP 98.6; O2SAT 99
[2025-02-20 06:44] LABS: CALCIUM, SERUM 9.8 mg/dL (8.5-10.1); CREATININE 0.7 mg/dL (0.6-1.3); SODIUM SERUM 133.0 mmol/L (136-145); UREA NITROGEN, BLOOD 13.0 mg/dL (7-18)
[2025-02-20 06:50] LABS: PLATELET COUNT (AUTO) 488 K/uL (150-450); RED BLOOD CELL COUNT(AUTO) 3.61 MIL/uL (4.0-5.2); RED CELL DISTRIBUTION WIDTH 14.1 % (11.5-15.0); WHITE BLOOD COUNT (AUTO) 3.0 K/uL (4.3-11.0)
[2025-02-20] MEDS: POTASSIUM CL. PREMIX PERIPHER. 50 ML IV SCH (07:58)
[2025-02-20 20:00] VITALS: BP 127/52; TEMP 97.9; O2SAT 96
[2025-02-20 21:00] VITALS: BP 127/52; TEMP 97.9
[2025-02-21 05:00] VITALS: BP 132/59; TEMP 97.9; O2SAT 96
[2025-02-21 13:00] VITALS: BP 153/48; TEMP 97.9; O2SAT 96
[2025-02-21 20:00] VITALS: BP 120/64; TEMP 98.1; O2SAT 97
[2025-02-22 05:00] VITALS: BP 137/56; TEMP 98.4; O2SAT 95
[2025-02-22 16:00] VITALS: BP 133/53; TEMP 98.1; O2SAT 94
[2025-02-22 20:00] VITALS: BP 155/52; TEMP 98.1; O2SAT 96
[2025-02-23 04:00] VITALS: BP 112/90; TEMP 98.3; O2SAT 97
[2025-02-23 08:00] VITALS: BP 132/78; TEMP 97.9; O2SAT 96
[2025-02-23 08:40] VITALS: BP 132/72
== END 2025-02-23 16:06 | DRG 342 ==
LOC: ER 15:37 → TELE1 18:19 → MEDSG1 02-16 15:42
PROVIDERS: ADMIT Registered Nurse Psychiatric/Mental Health; ATTEND Internal Medicine
DX: S42.011A Anterior displaced fracture of sternal end of right clavicle, initial encounter for closed fracture (principal); S12.600A Unspecified displaced fracture of seventh cervical vertebra, initial encounter for closed fracture; J90 Pleural effusion, not elsewhere classified; S22.41XA Multiple fractures of ribs, right side, initial encounter for closed fracture; N17.9 Acute kidney failure, unspecified; E87.1 Hypo-osmolality and hyponatremia; F17.210 Nicotine dependence, cigarettes, uncomplicated; D50.9 Iron deficiency anemia, unspecified; E86.0 Dehydration; E86.1 Hypovolemia; S02.2XXA Fracture of nasal bones, initial encounter for closed fracture; E78.5 Hyperlipidemia, unspecified; W19.XXXA Unspecified fall, initial encounter; E87.6 Hypokalemia; F33.0 Major depressive disorder, recurrent, mild; I10 Essential (primary) hypertension; R55 Syncope and collapse; R91.1 Solitary pulmonary nodule; Z98.1 Arthrodesis status; S00.83XA Contusion of other part of head, initial encounter; S20.211A Contusion of right front wall of thorax, initial encounter; Y93.9 Activity, unspecified; Y92.009 Unspecified place in unspecified non-institutional (private) residence as the place of occurrence of the external cause; F39 Unspecified mood [affective] disorder; F41.9 Anxiety disorder, unspecified; M85.80 Other specified disorders of bone density and structure, unspecified site; F03.93 Unspecified dementia, unspecified severity, with mood disturbance
CPT/HCPCS: 36415; 70450-TC; 70486-TC; 71260-TC; 72125-TC; 73030-TC; 73200-TC; 73610-TC; 76770-TC; 80048-TC; 80053-TC; 83540-TC; 83735-TC; 84100-TC; 84443-TC; 84484-TC; 85025-TC; 85027-TC; 85610-TC; 93307-TC; 97110-TC; 97116-TC; 97530-TC; 97535-TC; A4223; A4565; G0378; J2060; J2270; J2916; J3475; J3480; J7030; J7040; J7050; J8597; Q9967

== ENCOUNTER 2025-04-23 12:33 | Inpatient (IN) | payer MEDICARE, OTHER ==
[~2025-04-23] VITALS: Ht 157.5 cm; Wt 58.1 kg
[2025-04-23 14:13] LABS: PLATELET COUNT (AUTO) 335 K/uL (150-450); RED BLOOD CELL COUNT(AUTO) 3.96 MIL/uL (4.0-5.2); RED CELL DISTRIBUTION WIDTH 14.5 % (11.5-15.0); WHITE BLOOD COUNT (AUTO) 9.3 K/uL (4.3-11.0)
[2025-04-23 14:25] LABS: CALCIUM, SERUM 9.6 mg/dL (8.5-10.1); CREATININE 0.7 mg/dL (0.6-1.3); SODIUM SERUM 130.0 mmol/L (136-145); UREA NITROGEN, BLOOD 19.0 mg/dL (7-18)
[2025-04-23 14:26] LABS: INR 1.07 (0.91-1.10)
[2025-04-23] MEDS: POTASSIUM CL. PREMIX PERIPHER. 50 ML IV SCH (14:30)
[2025-04-23] MEDS ORDERED: MAG HYDROX/AL HYDROX/SIMETH 30 ML UDC PO PRN (15:00)
[2025-04-23] MEDS ORDERED: ONDANSETRON HCL/PF 4 MG/2 ML VIAL IVP PRN (15:00)
[2025-04-23] MEDS ORDERED: Z GUARD REMEDY 4 OZ OINT TP PRN (15:00)
[2025-04-23] MEDS ORDERED: MAGNESIUM HYDROXIDE 30 ML UDC PO PRN (15:00)
[2025-04-23] MEDS ORDERED: POTASSIUM CHLORIDE 20 MEQ POWDER PACKET ONE (15:15)
[2025-04-23] MEDS: POTASSIUM CHLORIDE 20 MEQ POWDER PACKET PO ONE ×2 (15:22→17:33)
[2025-04-23 17:02] VITALS: BP 139/58; TEMP 97.5; O2SAT 96
[2025-04-23] MEDS: PANTOPRAZOLE 40 MG VIAL IV SCH (17:33)
[2025-04-23] MEDS: MORPHINE SULFATE INJ 2 MG/ML DISP.SYRIN IV PRN (17:33)
[2025-04-23] MEDS: ENOXAPARIN SODIUM 40 MG/0.4 ML DISP.SYRIN SQ SCH (17:34)
[2025-04-23] MEDS: IV D5/ 0.9% NACL 1,000 ML IV PRN (17:35)
[2025-04-23] MEDS ORDERED: BUPR-54 PO (18:57)
[2025-04-23 20:00] VITALS: BP 120/42; TEMP 97.5; TEMP 97.8; O2SAT 94; O2SAT 96
[2025-04-23 20:16] LABS: APPEARANCE,URINE CLOUDY (CLEAR); BLOOD, URINE 2+ Ery/uL (NEGATIVE); LEUKOCYTE ESTERASE ,URINE 1+ (NEGATIVE); NITRITE, URINE NEGATIVE (NEGATIVE); UGLUCOSE NEGATIVE (NEGATIVE)
[2025-04-23 21:44] LABS: ADD URINE CULTURE YES
[2025-04-24] VITALS (8 sets, daily range): BP systolic 99–135; BP diastolic 50–95; TEMP 97.5–98.4; O2SAT 93–94
[2025-04-24 08:16] LABS: PLATELET COUNT (AUTO) 282 K/uL (150-450); RED BLOOD CELL COUNT(AUTO) 3.41 MIL/uL (4.0-5.2); RED CELL DISTRIBUTION WIDTH 14.0 % (11.5-15.0); WHITE BLOOD COUNT (AUTO) 4.7 K/uL (4.3-11.0)
[2025-04-24 09:49] LABS: CALCIUM, SERUM 9.0 mg/dL (8.5-10.1); CREATININE 0.7 mg/dL (0.6-1.3); PHOSPHORUS 2.1 mg/dL (2.5-4.9); SODIUM SERUM 130.0 mmol/L (136-145); UREA NITROGEN, BLOOD 23.0 mg/dL (7-18)
[2025-04-24 10:02] LABS: LDL 80.0 mg/dL (0-99)
[2025-04-24] MEDS ORDERED: POTASSIUM CHLORIDE 20 MEQ POWDER PACKET PO ONE ×3 (11:00→14:00)
[2025-04-24] MEDS: POTASSIUM CL. PREMIX PERIPHER. 50 ML IV SCH (11:26)
[2025-04-24] MEDS: CEFTRIAXONE 1 G in IV D5W 50 ML IV SCH (12:30)
[2025-04-24 12:32] LABS: BASOPHILS % (MANUAL) 0 % (0.0-2.0); EOSINOPHILS % (MANUAL) 0 % (0-4); LYMPHOCYTES % (MANUAL) 10 % (16-48); MONOCYTES % (MANUAL) 15 % (0-11.0); NEUTROPHILS % (MANUAL) 75 (42-76); PLATELET ESTIMATE ADEQUATE
[2025-04-24] MEDS ORDERED: FENTANYL PF 250MCG/5ML AMPUL ONE (13:52)
[2025-04-24] MEDS ORDERED: ROCURONIUM BROMIDE 50 MG/5 ML ONE (13:52)
[2025-04-24] MEDS ORDERED: BUPIVACAINE 0.5 % PF 150 MG/30 ML VIAL ONE (14:08)
[2025-04-24] MEDS ORDERED: VANCOMYCIN 1 GM VIAL ONE (14:08)
[2025-04-24] MEDS ORDERED: ANESTHESIA TRAY IN PYXIS 1 EA TRAY MC ONE (15:54)
[2025-04-24] MEDS ORDERED: FENTANYL PF 100MCG/2ML AMPUL ONE (15:55)
[2025-04-24] MEDS: ACETAMINOPHEN 325 MG TABLET PO PRN (17:43)
[2025-04-24] MEDS: IV D5/0.45 NACL W/20 MEQ KCL 1L IV SCH (18:42)
[2025-04-24] MEDS: ANCEF 1 GM/50 ML D5W IV SCH (20:58)
[2025-04-25] MEDS: MORPHINE SULFATE INJ 4 MG/ML DISP.SYRIN IV PRN (01:36)
[2025-04-25] MEDS: HYDROCODONE/APAP 10/325MG TABLET PO PRN (05:54)
[2025-04-25 07:47] LABS: CALCIUM, SERUM 8.6 mg/dL (8.5-10.1); CREATININE 0.6 mg/dL (0.6-1.3); SODIUM SERUM 128.0 mmol/L (136-145); UREA NITROGEN, BLOOD 11.0 mg/dL (7-18)
[2025-04-25 08:00] VITALS: BP 118/40; TEMP 97.9; O2SAT 96
[2025-04-25] MEDS ORDERED: MECLIZINE HCL 25 MG TABLET PO PRN (08:30)
[2025-04-25] MEDS: DOCUSATE SODIUM 100 MG CAPSULE PO SCH (08:55)
[2025-04-25] MEDS: SERTRALINE HCL 50 MG TABLET PO SCH (08:55)
[2025-04-25] MEDS: BUPROPION XL 150 MG TAB.ER.24 PO SCH (08:55)
[2025-04-25] MEDS: PROPRANOLOL HCL 40 MG TABLET PO SCH (08:55)
[2025-04-25] MEDS: AMLODIPINE BESYLATE 10 MG TABLET PO SCH (08:56)
[2025-04-25] MEDS: AMITRIPTYLINE HCL 10 MG TABLET PO SCH (11:46)
[2025-04-25 16:00] VITALS: BP 128/50; TEMP 98; O2SAT 94
[2025-04-25 20:00] VITALS: BP 116/48; TEMP 98.1; O2SAT 91
[2025-04-25] MEDS: DOXEPIN HCL (25 MG) 25 MG CAPSULE PO SCH (21:39)
[2025-04-26 08:00] VITALS: BP 140/63; TEMP 98.2; O2SAT 98
[2025-04-26] MEDS: PANTOPRAZOLE 40 MG TABLET.DR PO SCH (08:42)
[2025-04-26] MEDS: OLANZAPINE ZYDIS 5 MG TAB.RAPDIS SL ONE (10:15)
[2025-04-26 10:47] LABS: PLATELET COUNT (AUTO) 251 K/uL (150-450); RED BLOOD CELL COUNT(AUTO) 2.52 MIL/uL (4.0-5.2); RED CELL DISTRIBUTION WIDTH 13.9 % (11.5-15.0); WHITE BLOOD COUNT (AUTO) 4.0 K/uL (4.3-11.0)
[2025-04-26 11:01] LABS: CALCIUM, SERUM 8.5 mg/dL (8.5-10.1); CREATININE 0.5 mg/dL (0.6-1.3); SODIUM SERUM 128.0 mmol/L (136-145); UREA NITROGEN, BLOOD 7.0 mg/dL (7-18)
[2025-04-26] MEDS: POTASSIUM CHLORIDE 20 MEQ POWDER PACKET PO ONE (13:03)
[2025-04-26 16:00] VITALS: BP 124/53; TEMP 97.9; O2SAT 94
[2025-04-26] MEDS: QUETIAPINE FUMARATE 25 MG TABLET PO SCH (16:31)
[2025-04-26 20:00] VITALS: BP 118/49; TEMP 97.3; O2SAT 98
[2025-04-26] MEDS: CEPHALEXIN MONOHYDRATE 500 MG CAPSULE PO SCH (20:38)
[2025-04-27 18:00] VITALS: BP 131/50; TEMP 97.5; O2SAT 96
[2025-04-27 20:00] VITALS: BP 155/75; TEMP 98.6; O2SAT 95
[2025-04-28 04:03] VITALS: BP 142/65; TEMP 98.3; O2SAT 96
[2025-04-28 07:45] LABS: PLATELET COUNT (AUTO) 321 K/uL (150-450); RED BLOOD CELL COUNT(AUTO) 2.65 MIL/uL (4.0-5.2); RED CELL DISTRIBUTION WIDTH 14.1 % (11.5-15.0); WHITE BLOOD COUNT (AUTO) 3.0 K/uL (4.3-11.0)
[2025-04-28 07:58] LABS: CALCIUM, SERUM 8.9 mg/dL (8.5-10.1); CREATININE 0.4 mg/dL (0.6-1.3); PHOSPHORUS 3.6 mg/dL (2.5-4.9); SODIUM SERUM 133.0 mmol/L (136-145); UREA NITROGEN, BLOOD 9.0 mg/dL (7-18)
[2025-04-28 08:49] VITALS: BP 140/50; TEMP 97.5; O2SAT 97
[2025-04-28 10:19] VITALS: BP 140/50
[2025-04-28 11:16] LABS: LYMPHOCYTES % (MANUAL) 14 % (16-48); NEUTROPHILS % (MANUAL) 68 (42-76)
[2025-04-28 11:17] LABS: BASOPHILS % (MANUAL) 0 % (0.0-2.0); EOSINOPHILS % (MANUAL) 2 % (0-4); MONOCYTES % (MANUAL) 16 % (0-11.0); PLATELET ESTIMATE ADEQUATE
== END 2025-04-28 13:15 | DRG 481 ==
LOC: ER 12:48 → MED 15:17
PROVIDERS: ADMIT Nurse Practitioner Acute Care; ATTEND Internal Medicine
PROC: 0QS706Z Reposition Left Upper Femur with Intramedullary Internal Fixation Device, Open Approach (ICD-10-PCS; principal; 2025-04-24 14:00)
DX: S72.142A Displaced intertrochanteric fracture of left femur, initial encounter for closed fracture (principal); E22.2 Syndrome of inappropriate secretion of antidiuretic hormone; F05 Delirium due to known physiological condition; F29 Unspecified psychosis not due to a substance or known physiological condition; E13.9 Other specified diabetes mellitus without complications; B96.20 Unspecified Escherichia coli [E. coli] as the cause of diseases classified elsewhere; N39.0 Urinary tract infection, site not specified; F32.A Depression, unspecified; G30.9 Alzheimer's disease, unspecified; I10 Essential (primary) hypertension; F02.83 Dementia in other diseases classified elsewhere, unspecified severity, with mood disturbance; E78.5 Hyperlipidemia, unspecified; E86.1 Hypovolemia; E87.6 Hypokalemia; Z79.899 Other long term (current) drug therapy; F17.210 Nicotine dependence, cigarettes, uncomplicated; W18.30XA Fall on same level, unspecified, initial encounter; Y93.9 Activity, unspecified; Y92.009 Unspecified place in unspecified non-institutional (private) residence as the place of occurrence of the external cause; F39 Unspecified mood [affective] disorder; T43.225A Adverse effect of selective serotonin reuptake inhibitors, initial encounter
CPT/HCPCS: 36415; 71045-TC; 72100-TC; 73020; 73502; 80048-TC; 80061-TC; 81001; 83735-TC; 83935-TC; 84100-TC; 84443-TC; 84550-TC; 85025-TC; 85027-TC; 85730-TC; 87086-TC; 87186-TC; 93307-TC; 97110-TC; 97112-TC; 97530-TC; 97535-TC; A4223; A6209; A6223; C1713; G0378; J0461; J0690; J0696; J1650; J1885; J2270; J2470; J2704; J3010; J3373; J3480; J3490; J7030; J7050; J7060